=== PATIENT | female | born 2000 | race Hispanic/Latino ===

== ENCOUNTER 2023-07-11 12:12 | Emergency (ER) | payer OTHER, SELFPAY ==
[2023-07-11] MEDS ORDERED: ONDANSETRON 4 MG/2 ML VIAL ONE (12:42)
[2023-07-11] MEDS ORDERED: NA CHLORIDE 0.9% 1,000 ML ONE (12:42)
[2023-07-11 12:55] LABS: Absolute Eosinophils 0.1 K/uL (0-0.5); Absolute Lymphocytes (CBC) 1.3 K/uL (0.7-4.9); Absolute Monocytes 0.4 K/uL (0.1-1.3); Absolute Neutrophil 5.2 K/uL (1.8-8.0); Basophils % 0.7 % (0-1.3); Eosinophils % 1.8 % (0-4.4); Hematocrit 40.4 % (36.0-45.0); Hemoglobin 13.5 g/dL (12.0-15.0); Lymphocytes % 18.3 % (15.3-44.8); MCH 31.2 pg (27.0-35.0); MCHC 33.3 g/dL (32.0-36.0); MCV 93.8 fL (80-100); MPV 7.9 fL (7.6-11.3); Monocytes % 6.1 % (3.3-12.3); Neutrophils % 73.1 % (41.7-73.7); Platelets 436 thou/uL (152-406); RBC Red Blood Cell Count 4.31 M/uL (3.86-4.86); Red Cell Distribution Width 12.8 % (12.1-15.2)
[2023-07-11 12:56] LABS: Specific Gravity > 1.030 (1.005-1.030)
[2023-07-11 13:04] LABS: Specific Gravity > 1.030 (1.005-1.030); Sqamous Epithelial >50 /HPF (None Seen); Urine Bacteria >50 /HPF (<20); Urine Bilirubin 1+ (Negative); Urine Blood Trace (Negative); Urine Clarity Extremely Turbid (Clear); Urine Color Yellow (Yellow); Urine Culture Reflex Order NOT NEEDED; Urine Glucose NEGATIVE (Negative); Urine Ketones 2+ (Negative); Urine Microscopic Reflex YN ORDER UMIC; Urine Mucus 4+ /HPF (None Seen); Urine Nitrite NEGATIVE (Negative); Urine Protein 2+ (Negative); Urine Urobilinogen 1+ (Normal)
[2023-07-11 13:16] LABS: Albumin 4.6 g/dL (3.4-5.0); Albumin/Globulin Ratio 1.1 (1.1-1.8); Anion Gap 12.2 mEq/L (5.0-15.0); Bilirubin Total 0.5 mg/dL (0.2-1.0); Globulin 4.2 g/dL (2.3-3.5); Potassium 3.2 mEq/L (3.5-5.1); Protein, Total 8.8 g/dL (6.4-8.2)
[2023-07-11] MEDS ORDERED: KETOROLAC 30 MG/ML INJ ONE (14:13)
[2023-07-11] MEDS ORDERED: CEFTRIAXONE 1000 MG/VIAL ONE (14:13)
[2023-07-11] MEDS ORDERED: POTASSIUM 25 MEQ EFFERV TAB ONE (14:14)
[2023-07-11] MEDS ORDERED: PROMETHAZINE INJ 25 MG/ML AMP ONE (14:43)
--- NOTE | 2023-07-11 16:03 | ER ---
Nurse's Notes [facility] Name: Tiffanie Galeana Age: 23 yrs Sex: Female : 2000 Arrival Date: 07/11/2023 Time: 12:12 Bed 13 Private MD: Diagnosis: Abdominal pain, Generalized;Nausea with vomiting, unspecified;UTI/ Urinary tract infection, site not specified Presentation: 07/10 12:25 Chief complaint: Patient states: Nausea, vomiting and abdominal pain since this nj1 morning. Unable to keep anything down. Coronavirus screen: Vaccine status: Patient reports receiving the 2nd dose of the covid vaccine. Ebola Screen: Patient denies travel to an Ebola-affected area in the 21 days before illness onset. Initial Sepsis Screen: Does the patient meet any 2 criteria? HR > 90 bpm. No. Patient's initial sepsis screen is negative. Does the patient have a suspected source of infection? No. Patient's initial sepsis screen is negative. Risk Assessment: Do you want to hurt yourself or someone else? Patient reports no desire to harm self or others. Onset of symptoms was July 11, 2023. 12:25 Method Of Arrival: Ambulatory [facility] 12:25 Acuity: MUKESH 3 wv1 Triage Assessment: 12:29 General: Appears uncomfortable, Behavior is calm, cooperative, appropriate for age. nj1 Pain: Complains of pain in abdomen. GI: Pt is actively vomiting. Historical: - Allergies: 12:27 No Known Allergies; nj1 - PMHx: 12:27 None; nj1 - Immunization history:: Client reports receiving the 2nd dose of the Covid vaccine. - Social history:: Smoking status: Reported history of juuling and/or vaping. Screenin:30 [facility] ED Fall Risk Assessment (Adult) History of falling in the last 3 months, bp including since admission No falls in past 3 months (0 pts). Abuse screen: Denies threats or abuse. Denies injuries from another. Nutritional screening: No deficits noted. Tuberculosis screening: No symptoms or risk factors identified. Assessment: 12:30 General: Appears distressed, uncomfortable, Behavior is calm, cooperative, appropriate bp for age. Pain: Complains of pain in abdomen. Neuro: No deficits noted. GI: Bowel sounds present X 4 quads. Abd is soft X 4 quads. 14:30 Reassessment: No changes from previously documented assessment. Patient is alert, bp oriented x 3, equal unlabored respirations, skin warm/dry/pink. 15:53 Reassessment: Patient appears in no apparent distress at this time. Patient is alert, bp oriented x 3, equal unlabored respirations, skin warm/dry/pink. Vital Signs: 12:25 BP 137 / 97; Pulse 97; Resp 16; Temp 97(TE); Pulse Ox 100% ; Weight 66.22 kg; Height 4 nj1 ft. 11 in. ; Pain 7/10; 14:53 BP 136 / 81; Pulse 100; Resp 16; Pulse Ox 100% ; bp 15:52 BP 128 / 80; Pulse 91; Resp 16; Pulse Ox 97% ; bp 12:25 Body Mass Index 29.49 (66.22 kg, 149.86 cm) nj1 12:25 Pain Scale: Adult [facility] ED Course: 12:16 Patient arrived in ED. im 12:27 Triage completed. nj1 12:27 Channing Holguin, ALLY is Primary Nurse. bp 12:27 Arm band placed on right wrist. nj1 12:28 Nkechi Clark MD is Attending Physician. sd2 12:30 Patient has correct armband on for positive identification. bp 12:47 Test, Urine Sent. bc6 12:47 Urinalysis w/ reflexes Sent. bc6 12:47 Lipase Sent. bc6 12:47 CMP Sent. bc6 12:47 CBC with Diff Sent. bc6 12:47 Initial lab(s) drawn, by la, sent to lab. Urine collected: clean catch specimen. bc6 Inserted saline lock: 20 gauge in right antecubital area, using aseptic technique. Blood collected. 13:27 Patient requests pain medication. mb9 16:15 No provider procedures requiring assistance completed. IV discontinued, intact, bp bleeding controlled, Pressure dressing applied. 16:16 Provided Education on: discharge instructions. bp Administered Medications: 12:50 Drug: NS 0.9% IV 1000 ml IV at 1 bolus Per protocol; 1000 mL bolus Route: IV; Rate: 1 bp bolus; Site: right antecubital; 12:50 Drug: Ondansetron IVP 4 mg IVP once; over 2 minutes Route: IVP; Site: right antecubital;bp 14:21 Drug: Rocephin IV 1 grams IV at bolus once; Given slow IV push per pharmacy bp instructions Route: IV; Rate: bolus; Site: right antecubital; 14:21 Drug: Ketorolac IVP 15 mg IVP once Route: IVP; Site: right antecubital; bp 14:21 Drug: Potassium PO Effervescent Tablet 50 mEq PO once; dissolve in 4 ounces of water or bp juice Route: PO; 14:45 Drug: Promethazine IVP 12.5 mg IVP once Route: IVP; Site: right antecubital; bp Medication: 16:16 VIS not applicable for this client. bp Outcome: 16:03 Discharge ordered by . sd2 16:16 Discharged to home ambulatory, with family, bp 16:16 Condition: stable bp 16:16 Discharge instructions given to patient, Instructed on discharge instructions, follow up and referral plans. medication usage, Demonstrated understanding of instructions, follow-up care, medications, Prescriptions given X 2, 16:19 Patient left the ED. bp Signatures: Channing Holguin RN RN bp Nkechi Clark MD MD sd2 Ting Wallace, RN RN mb9 Kim Freitas 6 Amee Gaviria RN RN nj1 Kristen Torres Corrections: (The following items were deleted from the chart) 12:29 12:25 BP 137 / 97; Pulse 97bpm; Resp 16bpm; Pulse Ox 100%; 66.22 kg; Height 4 ft. 11 nj1 in.; BMI: 29.4; Pain 7/10, Adult; nj1
--- NOTE | 2023-07-11 16:04 | EDPHYS ---
Physician Documentation [facility] Name: Tiffanie Galeana Age: 23 yrs Sex: Female : 2000 Arrival Date: 07/11/2023 Time: 12:12 Bed 13 Private MD: ED Physician Nkechi Clark HPI: 07/10 12:37 This 23 yrs old Female presents to ER via Ambulatory with complaints of sd2 Abdominal Cramping, Nausea/Vomiting. 12:37 23-year-old female presents with chief complaint of generalized abdominal cramping and sd2 nausea and vomiting since this morning. She reports she has not been able to keep anything down. She denies any associated fevers or diarrhea. She reports that she had some similar symptoms but not as severe when she was on Ozempic. She was on it for 10 weeks but has been off of it for 2 weeks now. She states she has an IUD and there is no chance of .. Historical: - Allergies: 12:27 No Known Allergies; nj1 - PMHx: 12:27 None; nj1 - Immunization history:: Client reports receiving the 2nd dose of the Covid vaccine. - Social history:: Smoking status: Reported history of juuling and/or vaping. ROS: 12:37 Constitutional: Negative for fever, chills, and weight loss, Eyes: Negative for injury, sd2 pain, redness, and discharge, Cardiovascular: Negative for chest pain, palpitations, and edema, Respiratory: Negative for shortness of breath, cough, wheezing. 12:37 MS/Extremity: Negative for injury and deformity, Skin: Negative for injury, rash, and discoloration, Neuro: Negative for headache, numbness and tingling. 12:37 Abdomen/GI: Positive for nausea and vomiting, abdominal cramps, Negative for diarrhea, Exam: 12:37 Constitutional: This is a well developed, well nourished patient who is awake, alert, sd2 and in no acute distress. Head/Face: Normocephalic, atraumatic. Eyes: EOMI, normal conjunctiva bilaterally Chest/axilla: Normal chest wall appearance and motion. Nontender with no deformity. Cardiovascular: Regular rate and rhythm with a normal S1 and S2. No gallops, murmurs, or rubs. 2+ distal pulses. Respiratory: Lungs have equal breath sounds bilaterally, clear to auscultation and percussion. No rales, rhonchi or wheezes noted. No increased work of breathing, no retractions or nasal flaring. Abdomen/GI: Soft, mild TTP of the epigastric area, no rebound, guarding or distention Skin: Warm, dry with normal turgor. Normal color with no rashes, no lesions, and no evidence of cellulitis. MS/ Extremity: Pulses equal, no cyanosis. Neurovascular intact. Full, normal range of motion. Psych: Awake, alert, with orientation to person, place and time. Behavior, mood, and affect are within normal limits. Vital Signs: 12:25 BP 137 / 97; Pulse 97; Resp 16; Temp 97(TE); Pulse Ox 100% ; Weight 66.22 kg; Height 4 nj1 ft. 11 in. ; Pain 7/10; 14:53 BP 136 / 81; Pulse 100; Resp 16; Pulse Ox 100% ; bp 15:52 BP 128 / 80; Pulse 91; Resp 16; Pulse Ox 97% ; bp 12:25 Body Mass Index 29.49 (66.22 kg, 149.86 cm) nj1 12:25 Pain Scale: Adult nj1 MDM: 12:28 Patient medically screened. sd2 12:37 Differential diagnosis: Gastritis, cholecystitis, pancreatitis, SBO, diverticulitis, sd2 kidney stone, appendicitis, UTI, dehydration, electrolyte abnormality among others. Data reviewed: vital signs, nurses notes, lab test result(s). I considered the following discharge prescriptions or medication management in the emergency department Medications were administered in the Emergency Department. See MAY. 16:00 Test considered but Not performed: CT: benign abdominal exam. labs WNCL. No indication sd2 at this time.. Counseling: I had a detailed discussion with the patient and/or guardian regarding the historical points, exam findings, and any diagnostic results supporting the discharge/admit diagnosis, lab results, the need for outpatient follow up, to return to the emergency department if symptoms worsen or persist or if there are any questions or concerns that arise at home. Response to treatment: the patient's symptoms have markedly improved after treatment. ED course: Pt tolerating PO after phenergan. Will plan for discharge home with oral abx and phenergan for nausea control. Advised of all results and need for outpatient follow up. Verbalizes understanding of discharge plan and strict return precautions. . 07/10 12:37 Order name: CBC with Diff; Complete Time: 13:59 sd2 07/10 12:37 Order name: CMP; Complete Time: 13:59 sd2 07/10 12:37 Order name: Lipase; Complete Time: 13:59 sd2 07/10 12:37 Order name: Urinalysis w/ reflexes; Complete Time: 13:59 sd2 07/10 12:37 Order name: Test, Urine; Complete Time: 13:59 sd2 07/10 14:00 Order name: PO challenge; Complete Time: 14:21 sd2 Administered Medications: 12:50 Drug: NS 0.9% IV 1000 ml IV at 1 bolus Per protocol; 1000 mL bolus Route: IV; Rate: 1 bp bolus; Site: right antecubital; 12:50 Drug: Ondansetron IVP 4 mg IVP once; over 2 minutes Route: IVP; Site: right antecubital;bp 14:21 Drug: Rocephin IV 1 grams IV at bolus once; Given slow IV push per pharmacy bp instructions Route: IV; Rate: bolus; Site: right antecubital; 14:21 Drug: Ketorolac IVP 15 mg IVP once Route: IVP; Site: right antecubital; bp 14:21 Drug: Potassium PO Effervescent Tablet 50 mEq PO once; dissolve in 4 ounces of water or bp juice Route: PO; 14:45 Drug: Promethazine IVP 12.5 mg IVP once Route: IVP; Site: right antecubital; bp Disposition Summary: 07/11/23 16:03 Discharge Ordered Problem: new sd2 Symptoms: have improved sd2 Condition: Stable sd2 Diagnosis - Abdominal pain, Generalized sd2 - Nausea with vomiting, unspecified sd2 - UTI/ Urinary tract infection, site not specified sd2 Followup: sd2 - With: Private Physician - When: 2 - 3 days - Reason: Recheck today's complaints, Continuance of care, Re-evaluation by your physician Discharge Instructions: - Discharge Summary Sheet sd2 - Abdominal Pain, Adult sd2 - Nausea and Vomiting, Adult sd2 - Urinary Tract Infection, Adult sd2 Forms: - Medication Reconciliation Form sd2 - Antibiotic Education sd2 - Prescription Opioid Use sd2 - Patient Portal Instructions sd2 - Leadership Thank You Letter sd2 Prescriptions: - Cephalexin 500 mg Oral Capsule - take 1 capsule ORAL route every 12 hours for 10 days; 20 capsule; Refills: 0, sd2 Product Selection Permitted - promethazine 25 mg Oral tablet - take 1 tablet ORAL route every 6 hours As needed; 15 tablet; Refills: 0, sd2 Product Selection Permitted Signatures: Dispatcher [employer] Channing Barraza, RN RN bp Nkechi Clark MD MD sd2 Amee Gaviria RN RN nj1 Corrections: (The following items were deleted from the chart) 12:37 12:37 CBC+H.LAB.BRZ ordered. EDMS EDMS 12:37 12:37 COMPREHENSIVE METABOLIC PANEL+C.LAB.BRZ ordered. EDMS EDMS 12:37 12:37 LIPASE+C.LAB.BRZ ordered. EDMS EDMS 12:37 12:37 Urinalysis+U.LAB.BRZ ordered. EDMS EDMS 12:37 12:37 Test, Urine+UC.LAB.BRZ ordered. EDMS EDMS
[2023-07-11 16:51] VITALS: BP 128/80; TEMP 97; O2SAT 97
== END 2023-07-11 16:19 | disposition home or self-care (01) ==
LOC: ER 12:12
DX: R10.84 Generalized abdominal pain (principal); R11.2 Nausea with vomiting, unspecified; N39.0 Urinary tract infection, site not specified
CPT/HCPCS: 85025; 81001; 36415; 81025; 83690; 80053; J2550; J2405; J7030; J0696; 96374; 96375; 99284